=== PATIENT | female | born 1985 | race Caucasian/White ===

== ENCOUNTER → 2017-02-25 | Outpatient (REF) | payer BC, OTHER ==
[~2017-02-25] MED LIST: ACET50TA PO; IBUP-1114 PO; VITAPRTA PO
== END ==
LOC: M LAB REF 20:22
PROVIDERS: ATTEND Physician Assistant Medical
DX: J02.9 Acute pharyngitis, unspecified (principal)

== ENCOUNTER → 2017-05-16 | Outpatient (REF) | payer OTHER ==
[2017-05-16 13:23] LABS: FREE T4 1.03 NG/DL (0.76-1.46)
== END ==
LOC: M SFHCADAM 11:27
PROVIDERS: ATTEND Family Medicine
DX: E66.3 Overweight (principal)

== ENCOUNTER → 2017-12-31 | Outpatient (REF) | payer OTHER ==
[2018-01-03 14:09] LABS: HPV HYBRID CAPTURE II Negative (Negative)
== END ==
LOC: M LAB REF 13:44
DX: Z12.4 Encounter for screening for malignant neoplasm of cervix (principal); R87.610 Atypical squamous cells of undetermined significance on cytologic smear of cervix (ASC-US)
CPT/HCPCS: G0123

== ENCOUNTER → 2018-01-16 | Outpatient (CLI) | payer BC, OTHER | LOC: M RAD 14:02 | DX: N94.5 Secondary dysmenorrhea (principal) | CPT/HCPCS: 76856 ==

== ENCOUNTER → 2018-01-16 | Outpatient (CLI) | payer BC, OTHER ==
[2018-01-16 19:19] LABS: HEMATOCRIT 40.4 % (36.0-47.0); HEMOGLOBIN 13.7 g/dl (12.0-15.5); MEAN CORPUSCULAR HEMOGLOBIN 31.1 pg (27.0-33.0); MEAN CORPUSCULAR HGB CONC 33.9 g/dl (32.0-36.5); MEAN CORPUSCULAR VOLUME 91.6 fl (80.0-96.0); PLATELET COUNT, AUTOMATED 372 10^3/uL (150-450); RED BLOOD COUNT 4.41 10^6/uL (4.00-5.40); RED CELL DISTRIBUTION WIDTH 12.7 % (11.5-14.5); WHITE BLOOD COUNT 12.9 10^3/uL (4.0-10.0)
[2018-01-16 19:45] LABS: FREE THYROXINE INDEX 4.3 % (1.3-4.8); T UPTAKE 29 % (30-39); THYROXINE (T4) 14.8 UG/DL (4.5-12.0)
== END ==
LOC: M SMT 14:48
DX: N92.4 Excessive bleeding in the premenopausal period (principal)
CPT/HCPCS: 84443

== ENCOUNTER → 2018-12-24 | Outpatient (CLI) | payer BC, OTHER ==
[~2018-12-24] MED LIST changes: -ACET50TA PO; +MAPA500T2 PO
== END ==
LOC: M SMT 11:06
PROVIDERS: ATTEND Allergy & Immunology Allergy
DX: T78.1XXA Other adverse food reactions, not elsewhere classified, initial encounter (principal); L50.9 Urticaria, unspecified

== ENCOUNTER → 2019-01-06 | Outpatient (REF) | payer OTHER ==
[2019-01-08 14:26] LABS: HPV HYBRID CAPTURE II Negative (Negative)
== END ==
LOC: M LAB REF 13:01
PROVIDERS: ATTEND Advanced Practice Midwife
DX: Z12.4 Encounter for screening for malignant neoplasm of cervix (principal)
CPT/HCPCS: 87624; G0123

== ENCOUNTER → 2019-04-13 | Outpatient (CLI) | payer OTHER | LOC: M SMT 09:10 | PROVIDERS: ATTEND Advanced Practice Midwife | DX: Z13.79 Encounter for other screening for genetic and chromosomal anomalies (principal) ==

== ENCOUNTER 2019-08-05 07:22 | Day surgery (SDC) | payer BC, OTHER ==
[~2019-08-05] VITALS: Ht 157.5 cm; Wt 77.1 kg
[~2019-08-05 07:22] MED LIST changes: +ACYC1CAP20 PO; +CVS1CAP2 PO; +LIDOCAINE 1% MDV 20ML VIAL SQ PRN; +LR 1,000 ML IV ONE
[2019-08-05 07:50] LABS: HEMATOCRIT 43.4 % (36.0-47.0); HEMOGLOBIN 14.2 g/dl (12.0-15.5); MEAN CORPUSCULAR HEMOGLOBIN 30.3 pg (27.0-33.0); MEAN CORPUSCULAR HGB CONC 32.7 g/dl (32.0-36.5); MEAN CORPUSCULAR VOLUME 92.5 fl (80.0-96.0); PLATELET COUNT, AUTOMATED 323 10^3/uL (150-450); RED BLOOD COUNT 4.69 10^6/uL (4.00-5.40); WHITE BLOOD COUNT 8.2 10^3/uL (4.0-10.0)
[2019-08-05] MEDS ORDERED: ONDANSETRON 4MG/2ML VIAL (J2405) As Ordered ONE (09:11)
[2019-08-05] MEDS ORDERED: KETOROLAC 60 MG/2 ML VIAL (J1885) As Ordered ONE (09:11)
[2019-08-05] MEDS ORDERED: ACETAMINOPHEN 1000MG 100ML IV BTL (OFIRMEV) (J0131 PER 10MG) As Ordered ONE (09:11)
[2019-08-05] MEDS ORDERED: fentaNYL 250 MCG/5 ML INJECTION (J3010) As Ordered ONE (09:11)
[2019-08-05] MEDS ORDERED: PROPOFOL 200 MG/20 ML VIAL As Ordered ONE ×2 (09:11→09:16)
[2019-08-05] MEDS ORDERED: LIDOCAINE 2% INJ 100 MG/5 ML SDV (FOR ANES.) As Ordered ONE ×2 (09:11→09:16)
[2019-08-05] MEDS ORDERED: MIDAZOLAM INJ 2 MG/2 ML VIAL (J2250) As Ordered ONE (09:11)
[2019-08-05] MEDS ORDERED: dexameTHASONE 4 MG/ML 1ML VIAL (J1100) As Ordered ONE (09:12)
[2019-08-05] MEDS ORDERED: ePHEDrine SULFATE 25 MG/5 ML(5MG/ML) SYRINGE As Ordered ONE (09:14)
[2019-08-05] MEDS: SILVER NITRATE APPLICATOR As Ordered ONE (09:18)
[2019-08-05] MEDS ORDERED: fentaNYL 100 MCG/2 ML INJECTION (J3010) IV PRN (10:00)
[2019-08-05] MEDS ORDERED: oxyCODONE 5MG TAB PO PRN (10:00)
[2019-08-05] MEDS ORDERED: PERCOCET 5MG/325MG TAB PO PRN (10:00)
[2019-08-05] MEDS ORDERED: LR 1,000 ML IV SCH (10:00)
[2019-08-05 10:40] VITALS: BP 133/79
[2019-08-05] MEDS ORDERED: KETOROLAC 30 MG/ML VIAL (J1885) IV SCH (15:00)
--- NOTE | 2019-08-06 06:24 | RO ---
DATE OF PROCEDURE: 08/05/2019 PREOPERATIVE DIAGNOSIS: Abnormal uterine bleeding. POSTOPERATIVE DIAGNOSIS: Abnormal uterine bleeding. PROCEDURE PERFORMED: Hysteroscopy, dilation and curettage with endometrial ablation using NovaSure. SURGEON: Dr. Bhavana Giang CONFIGURATION ENGINEER: None. ANESTHESIA: General. ESTIMATED BLOOD LOSS: 5 mL. INTRAVENOUS FLUIDS: 400 mL lactated ringers Ringer's solution. URINE OUTPUT: Not obtained. SPECIMENS: Endometrial curetting. OPERATIVE FINDINGS: Patient with a cavity length of 5x4, endometrial ablation lasted 62 seconds. Cystoscopic findings revealed initially normal appearing endometrial cavity. Bilateral ostia visualized. Post ablation cystoscopic findings showed desiccation of the endometrium. DESCRIPTION OF OPERATION: After informed consent was obtained and written consent was reviewed, the patient was brought to the operating room where she was placed under general anesthesia. She was then placed in lithotomy position and was prepped and draped in a normal sterile fashion. A time out in the operating room was then performed identifying the patient, procedure be performed, as well as, drug allergies. A bivalved speculum was then placed revealing the cervix. The anterior lip of the cervix was grasped with a single tooth tenaculum. The uterine length was then obtained using uterine sound. The uterus was then sequentially dilated using Hanks dilators. Hysteroscope was then advanced through the cervical os and the endometrial cavity was inspected showing the above-noted findings. Hysteroscope was then removed. Sharp curette was then advanced through cervical os and uterus was curetted in a 360 fashion with tissue obtained. The tissue was collected and sent to pathology. The NovaSure device was then advanced. The uterine width was then obtained. Both the length and width was then entered into the device. Cavity assessment was performed and endometrial ablation was then performed for approximately 62 seconds. The NovaSure device was then removed. The mesh was inspected and noted to be intact. The hysteroscope was then advanced through the cervical os and the endometrial cavity was then inspected, this time showing desiccation of the endometrium. The NovaSure device was then removed. The single tooth tenaculum was removed. Silver nitrate was used on tenaculum sites for hemostasis. The patient was then taken out of lithotomy position, was awakened from anesthesia and taken recovery in stable condition. All counts were correct.
== END 2019-08-05 11:01 | disposition home or self-care (01) ==
LOC: M SDC 07:22
PROVIDERS: ATTEND Obstetrics & Gynecology
DX: N93.9 Abnormal uterine and vaginal bleeding, unspecified (principal); Z91.013 Allergy to seafood; Z79.899 Other long term (current) drug therapy
CPT/HCPCS: 36415; 58563; 81025; 85027; 86850; 86900; 86901; 88305; J0131; J1100; J1885; J2250; J2405; J3010

== ENCOUNTER 2020-01-30 11:45 | Day surgery (SDC) | payer BC, OTHER ==
[~2020-01-30] VITALS: Ht 157.5 cm; Wt 75.6 kg
[~2020-01-30 11:45] MED LIST changes: -LIDOCAINE 1% MDV 20ML VIAL SQ PRN; -LR 1,000 ML IV ONE
[2020-01-30] MEDS ORDERED: LEVOTAB10 (11:53)
[2020-01-30] MEDS ORDERED: NS 1,000 ML IV ONE (12:15)
[2020-01-30 12:34] LABS: BASO # 0.1 10^3/uL (0.0-0.2); BASO % 0.4 % (0.0-1.0); EOS # 0.1 10^3/uL (0.0-0.5); EOS % 0.8 % (0.0-3.0); HEMOGLOBIN 15.2 g/dl (12.0-15.5); LYMPH # 2.8 10^3/uL (1.5-5.0); LYMPH % 20.5 % (24.0-44.0); MEAN CORPUSCULAR HEMOGLOBIN 30.6 pg (27.0-33.0); MEAN CORPUSCULAR HGB CONC 34.5 g/dl (32.0-36.5); MEAN CORPUSCULAR VOLUME 88.5 fl (80.0-96.0); MONO # 1.2 10^3/uL (0.0-0.8); MONO % 8.4 % (0.0-5.0); NEUTROPHILS # 9.6 10^3/uL (1.5-8.5); NEUTROPHILS % 69.5 % (36.0-66.0); PLATELET COUNT, AUTOMATED 351 10^3/uL (150-450); RED BLOOD COUNT 4.97 10^6/uL (4.00-5.40); WHITE BLOOD COUNT 13.8 10^3/uL (4.0-10.0)
[2020-01-30 13:02] LABS: ALBUMIN 4.1 GM/DL (3.2-5.2); ALT/SGPT 23 U/L (12-78); BILIRUBIN,DIRECT 0.2 MG/DL (0.0-0.2); BILIRUBIN,TOTAL 0.7 MG/DL (0.2-1.0); BLOOD UREA NITROGEN 8 MG/DL (7-18); CALCIUM LEVEL 8.7 MG/DL (8.5-10.1); CARBON DIOXIDE LEVEL 27 MEQ/L (21-32); CHLORIDE LEVEL 105 MEQ/L (98-107); CREATININE FOR GFR 0.76 MG/DL (0.55-1.30); GLOMERULAR FILTRATION RATE > 60.0 (>60); GLUCOSE, FASTING 88 MG/DL (70-100); LIPASE 43 U/L (73-393); POTASSIUM SERUM 3.7 MEQ/L (3.5-5.1); SODIUM LEVEL 138 MEQ/L (136-145)
[2020-01-30] MEDS ORDERED: ISOVUE-370 76% 100ML VIAL As Ordered ONE (13:07)
--- NOTE | 2020-01-30 13:35 | REP ---
Clinical: Acute right lower quadrant pain. Technique: Axial contrast enhanced images from the lung bases to the pubic symphysis using 100 ml Isovue 370 intravenous contrast material with coronal and sagittal re-formations. Findings: The appendix is hyperemic and measures up to approximately 10 mm diameter with periappendiceal stranding and small reactive lymph nodes. Findings are consistent with acute appendicitis. No evidence for bowel obstruction or perforation. No drainable collection or abscess. Liver, spleen, pancreas, gallbladder, bilateral adrenal glands and kidneys are normal. No evidence for bowel obstruction. Scattered sigmoid diverticula noted without acute diverticulitis. Pelvis demonstrates normal bladder and age-appropriate uterus/adnexa. No pelvic fluid or ascites. No retroperitoneal adenopathy. Abdominal aorta and vasculature without aneurysm or dissection. Musculoskeletal structures are intact. Lung bases are clear. Impression: Findings consistent with acute appendicitis. No obstruction, perforation, ascites, or drainable collection/abscess. Electronically Signed by Nixon Hernandez MD 01/30/2020 01:27 P
[2020-01-30] MEDS ORDERED: LEVOTAB10 PO (13:49)
--- NOTE | 2020-01-30 14:00 | REP ---
Clinical: Pelvic pain. Technique: Transabdominal pelvic ultrasound with color Doppler evaluation of the bilateral ovaries. Findings: Bladder is normal and measures approximately 9.7 x 8.7 x 5.9 cm. Normal anteverted uterus measures 7.0 x 3.4 x 5.1 cm. Endometrial complex measures 4.9 mm thickness. The bilateral ovaries are normal in appearance and vascularity without torsion. Right ovary measures 3.9 x 2.4 x 3.2 cm (RI 0.58). Left ovary measures 3.0 x 1.9 x 1.8 cm (RI 0.56). No pelvic fluid or adnexal mass lesion. Impression: Normal pelvic ultrasound. Electronically Signed by Nixon Hernandez MD 01/30/2020 01:52 P
[2020-01-30] MEDS ORDERED: BUPIVACAINE HCL 0.25% 30ML VIAL As Ordered ONE (15:02)
[2020-01-30] MEDS ORDERED: propofoL 200 MG/20 ML VIAL As Ordered ONE (15:08)
[2020-01-30] MEDS ORDERED: LIDOCAINE 2% 100MG/5ML SDV (FOR ANES.) As Ordered ONE (15:08)
[2020-01-30] MEDS ORDERED: ROCURONIUM BROMIDE 50 MG/5 ML VIAL As Ordered ONE (15:08)
[2020-01-30] MEDS ORDERED: SUCCINYLCHOLINE 100 MG/5 ML SYRINGE (J0330) As Ordered ONE (15:08)
[2020-01-30] MEDS ORDERED: fentaNYL 250 MCG/5 ML INJECTION (J3010) As Ordered ONE (15:09)
[2020-01-30] MEDS ORDERED: MIDAZOLAM INJ 2MG/2ML VIAL (J2250 PER 1MG) As Ordered ONE (15:09)
[2020-01-30] MEDS ORDERED: LR 1,000 ML IV SCH ×2 (15:30→17:30)
[2020-01-30] MEDS ORDERED: PIPERACILLIN/TAZOBACTAM SOD 3.375 GM in D5W MINI-BAG PLUS 50 ML IV SCH (16:00)
[2020-01-30] MEDS ORDERED: dexameTHASONE 4 MG/ML 1ML VIAL (J1100 PER 1MG) As Ordered ONE (16:31)
[2020-01-30] MEDS ORDERED: ACETAMINOPHEN 1000MG 100ML IV BTL (OFIRMEV) (J0131 PER 10MG) As Ordered ONE (16:31)
[2020-01-30] MEDS ORDERED: METOCLOPRAMIDE INJ 10MG/2ML VIAL (J2765 PER 1) As Ordered ONE (16:31)
[2020-01-30] MEDS ORDERED: ONDANSETRON 4MG/2ML VIAL As Ordered ONE (16:32)
[2020-01-30] MEDS ORDERED: KETOROLAC 60MG 2ML VIAL As Ordered ONE (16:32)
[2020-01-30] MEDS ORDERED: SUGAMMADEX SODIUM 500 MG/5 ML VIAL (BRIDION) As Ordered ONE (16:37)
[2020-01-30] MEDS ORDERED: ACETAMINOPHEN TAB 650MG DOSE (2X325MG) PO PRN (17:30)
[2020-01-30] MEDS ORDERED: PERCOCET 5MG/325MG TAB PO PRN (17:30)
[2020-01-30] MEDS ORDERED: fentaNYL 100 MCG/2 ML INJECTION (J3010) IV PRN (17:30)
[2020-01-30] MEDS ORDERED: MORPHINE 2 MG/ML 1ML VIAL (J2270) IV PRN (17:30)
[2020-01-30] MEDS ORDERED: NORCO, ANEXSIA 5/325MG TABLET (HYDROcodone/ACETAMINOPHEN) PO PRN (17:30)
[2020-01-30] MEDS ORDERED: KETOROLAC 30 MG/ML 1ML VIAL IV PRN (17:30)
[2020-01-30] MEDS ORDERED: ONDANSETRON 4MG/2ML VIAL IV PRN (17:30)
[2020-01-30] MEDS ORDERED: IBUPROFEN 600MG TAB PO PRN (17:30)
[2020-01-30] MEDS ORDERED: MEPERIDINE INJ 25 MG/ML VIAL (J2175) IV PRN (17:30)
[2020-01-30 18:30] VITALS: BP 110/60
[2020-01-30 20:00] VITALS: BP 123/83
--- NOTE | 2020-02-03 08:52 | RO ---
DATE OF PROCEDURE: 01/30/2020 PREOPERATIVE DIAGNOSIS: Acute appendicitis. POSTOPERATIVE DIAGNOSIS: Acute appendicitis. PROCEDURE PERFORMED: Laparoscopic appendectomy. SURGEON: Dr. Andres Puentes ANESTHESIA: General. INDICATIONS FOR PROCEDURE: The patient is a 35-year-old woman who presented to the emergency department with a history of significant abdominal pain becoming localized to the right lower quadrant. She was found to have tenderness in the right lower quadrant with a mildly elevated white blood cell count. A CT scan was obtained which revealed some thickening of the appendix with some inflammatory changes. She is now for laparoscopic appendectomy. OPERATIVE PROCEDURE: The patient was brought to the operating room and placed on the table in a supine position. She was placed under general endotracheal anesthesia. The patient's abdomen was prepped and draped in a sterile fashion. 0.25% Marcaine was infiltrated at the trocar sites as needed. The patient had a scar from a closed skin piercing just above the umbilicus. I elected to place the initial trocar through this area and excise the scar on closure. The incision was deepened to the fascia. A Veress needle was inserted and after a positive hanging drop test the abdomen was inflated with carbon dioxide gas. The fascia was then incised in the midline and an 11 mm port was placed without difficulty. The laparoscope was placed. Initial examination showed no free fluid. There were no acute inflammatory changes identified initially. The patient's liver and gallbladder appeared normal. Visualized portions of the small and large bowel appeared normal. The patient was tilted to a Trendelenburg position and rolled slightly to the left. Two 5 mm ports were placed in the left lower quadrant. Graspers were inserted. The cecum was readily identified. The base of the appendix was identified and the appendix was identified extending superiorly and laterally towards the paracolic gutter. The appendix was clearly erythematous and inflamed. I elected to take the appendix down in a retrograde fashion. An opening was created through the mesoappendix using the hook cautery. The base of the appendix was stapled with a 45 mm endoscopic linear cutter with a blue load. The appendix was then dissected free using primarily the hook cautery working from the base towards the tip. The artery was transected near the tip of the appendix and this was controlled with the cautery. The appendix was placed in an Endopouch. The right paracolic gutter was irrigated and final inspection showed no evidence of bleeding. The closure of the appendiceal stump was sound. The patient was returned to a flat position. The abdomen was deflated and the trocars were removed. The appendix was recovered through the supraumbilical site. This was sent for permanent pathology. The fascia was closed with interrupted simple sutures of #2-0 Vicryl. The scar at the supraumbilical site was excised and the skin incisions were all closed with buried sutures of #4-0 Vicryl. Dermabond was applied to all incisions. She tolerated the procedure well without apparent complication. She was awakened in the operating room, extubated and moved to the recovery room in stable condition. ABBEY
== END 2020-01-30 21:30 | disposition home or self-care (01) ==
LOC: M ED 11:45 → M SDC 15:08 → M MS5PR 18:25 → M SDC 21:30 → ENRESERV 22:16
PROVIDERS: ATTEND Surgery
DX: K35.30 Acute appendicitis with localized peritonitis, without perforation or gangrene (principal); G43.909 Migraine, unspecified, not intractable, without status migrainosus; Z11.59 Encounter for screening for other viral diseases; J30.1 Allergic rhinitis due to pollen; Z79.899 Other long term (current) drug therapy; Z91.048 Other nonmedicinal substance allergy status; Z91.013 Allergy to seafood
CPT/HCPCS: 36415; 44970; 74177; 76856; 80048; 80076; 81001; 83690; 84702; 85025; 87086; 88304; 93976; 96360; 96361; 99284; J0131; J0330; J1100; J1885; J2250; J2405; J2543; J2765; J3010; Q9967; U0002

== ENCOUNTER → 2020-02-09 | Outpatient (CLI) | payer BC, OTHER ==
[~2020-02-09] MED LIST changes: +LEVOTAB10; +LEVOTAB10 PO
[2020-02-09 11:12] LABS: HEMATOCRIT 41.6 % (36.0-47.0); HEMOGLOBIN 13.8 g/dl (12.0-15.5); MEAN CORPUSCULAR HEMOGLOBIN 29.9 pg (27.0-33.0); MEAN CORPUSCULAR HGB CONC 33.2 g/dl (32.0-36.5); PLATELET COUNT, AUTOMATED 330 10^3/uL (150-450); RED BLOOD COUNT 4.62 10^6/uL (4.00-5.40)
[2020-02-09 14:18] LABS: APPEARANCE, URINE HAZY (CLEAR); BACTERIA, URINE AUTO 1+ (NEGATIVE); BILIRUBIN, URINE AUTO NEGATIVE (NEGATIVE); BLOOD, URINE BLOOD 2+ (NEGATIVE); COLOR, URINE YELLOW (YELLOW); GLUCOSE, URINE (UA) AUTO NEGATIVE (NEGATIVE); KETONE, URINE AUTO NEGATIVE (NEGATIVE); LEUKOCYTE ESTERASE, URINE AUTO 3+ (NEGATIVE); NITRITE, URINE AUTO NEGATIVE (NEGATIVE); PROTEIN, URINE AUTO NEGATIVE (NEGATIVE); RBC, URINE AUTO 11 /HPF (0-3); SPECIFIC GRAVITY URINE AUTO 1.015 (1.002-1.035); SQUAMOUS EPITHELIAL CELL UR AU 2 /HPF (0-6); UROBILINOGEN, URINE AUTO 0.2 mg/dL (0.0-2.0); WBC, URINE AUTO 16 /HPF (0-3)
== END ==
LOC: M LAB 10:21
PROVIDERS: ATTEND Nurse Practitioner
DX: R10.813 Right lower quadrant abdominal tenderness (principal)

== ENCOUNTER → 2020-02-14 | Outpatient (REF) | payer OTHER ==
[2020-02-14 18:04] LABS: APPEARANCE, URINE HAZY (CLEAR); BACTERIA, URINE AUTO NEGATIVE (NEGATIVE); BILIRUBIN, URINE AUTO NEGATIVE (NEGATIVE); BLOOD, URINE BLOOD 1+ (NEGATIVE); COLOR, URINE YELLOW (YELLOW); GLUCOSE, URINE (UA) AUTO NEGATIVE (NEGATIVE); KETONE, URINE AUTO NEGATIVE (NEGATIVE); LEUKOCYTE ESTERASE, URINE AUTO 2+ (NEGATIVE); NITRITE, URINE AUTO NEGATIVE (NEGATIVE); PROTEIN, URINE AUTO NEGATIVE (NEGATIVE); RBC, URINE AUTO 10 /HPF (0-3); SPECIFIC GRAVITY URINE AUTO 1.019 (1.002-1.035); SQUAMOUS EPITHELIAL CELL UR AU 1 /HPF (0-6); UROBILINOGEN, URINE AUTO 0.2 mg/dL (0.0-2.0); WBC, URINE AUTO 3 /HPF (0-3)
== END ==
LOC: M SFHCADAM 15:47
PROVIDERS: ATTEND Family Medicine
DX: R31.9 Hematuria, unspecified (principal)

== ENCOUNTER → 2020-02-16 | Outpatient (REF) | payer OTHER | LOC: M SFHCADAM 13:55 | PROVIDERS: ATTEND Family Medicine | DX: R31.9 Hematuria, unspecified (principal) ==

== ENCOUNTER → 2020-02-29 | Outpatient (REF) | payer OTHER ==
[~2020-02-29] MED LIST changes: +BACT800T5 PO
== END ==
LOC: M SMT 17:16
PROVIDERS: ATTEND Nurse Practitioner Family
DX: R31.29 Other microscopic hematuria (principal)

== ENCOUNTER 2020-03-06 20:51 | Emergency (ER) | payer BC, OTHER ==
[~2020-03-06] VITALS: Ht 157.5 cm; Wt 75.0 kg
[~2020-03-06 20:51] MED LIST changes: -BACT800T5 PO
[2020-03-06] MEDS ORDERED: KETOROLAC 30 MG/ML 1ML VIAL IV ONE (21:30)
[2020-03-06] MEDS ORDERED: ONDANSETRON 4MG/2ML VIAL IV ONE (21:30)
[2020-03-06 21:40] LABS: BASO # 0.1 10^3/uL (0.0-0.2); BASO % 0.5 % (0.0-1.0); EOS # 0.1 10^3/uL (0.0-0.5); EOS % 0.9 % (0.0-3.0); HEMATOCRIT 43.4 % (36.0-47.0); HEMOGLOBIN 14.7 g/dl (12.0-15.5); LYMPH # 3.7 10^3/uL (1.5-5.0); LYMPH % 28.3 % (24.0-44.0); MEAN CORPUSCULAR HEMOGLOBIN 30.5 pg (27.0-33.0); MEAN CORPUSCULAR HGB CONC 33.9 g/dl (32.0-36.5); MONO # 1.3 10^3/uL (0.0-0.8); MONO % 9.5 % (0.0-5.0); NEUTROPHILS # 7.9 10^3/uL (1.5-8.5); PLATELET COUNT, AUTOMATED 343 10^3/uL (150-450); RED BLOOD COUNT 4.82 10^6/uL (4.00-5.40); WHITE BLOOD COUNT 13.1 10^3/uL (4.0-10.0)
[2020-03-06] MEDS ORDERED: ISOVUE-370 76% 100ML VIAL As Ordered ONE (21:42)
[2020-03-06] MEDS ORDERED: NS 1,000 ML IV ONE (21:45)
[2020-03-06 22:07] LABS: ALBUMIN 4.1 GM/DL (3.2-5.2); BILIRUBIN,DIRECT 0.1 MG/DL (0.0-0.2); BILIRUBIN,TOTAL 0.5 MG/DL (0.2-1.0); TOTAL PROTEIN 7.9 GM/DL (6.4-8.2)
--- NOTE | 2020-03-06 22:15 | REPVR ---
PROCEDURE INFORMATION: Exam: CT Abdomen And Pelvis With Contrast Exam date and time: 03/06/2020 9:43 PM Age: 35 years old Clinical indication: Abdominal pain; Generalized; Additional info: Rlq pain since appy in January TECHNIQUE: Imaging protocol: Computed tomography of the abdomen and pelvis with intravenous contrast. Radiation optimization: All CT scans at this facility use at least one of these dose optimization techniques: automated exposure control; mA and/or kV adjustment per patient size (includes targeted exams where dose is matched to clinical indication); or iterative reconstruction. Contrast material: ISOVUE 370; Contrast volume: 100 ml; Contrast route: INTRAVENOUS (IV); COMPARISON: CT ABD/PEL W/IV CONTRAST ONLY 01/30/2020 1:06 PM FINDINGS: Mediastinal space: A small hiatal hernia is present. Liver: There is a diffuse decrease in hepatic parenchymal density, consistent with steatosis. Gallbladder and bile ducts: Normal. No calcified stones. No ductal dilation. Pancreas: Normal. No ductal dilation. Spleen: Normal. No splenomegaly. Adrenals: Normal. No mass. Kidneys and ureters: Normal. No hydronephrosis. Stomach and bowel: Unremarkable. No obstruction. No mucosal thickening. Appendix: There has been an appendectomy. Intraperitoneal space: Unremarkable. No free air. No significant fluid collection. Vasculature: Unremarkable. No abdominal aortic aneurysm. Lymph nodes: Unremarkable. No enlarged lymph nodes. Bladder: Unremarkable as visualized. Reproductive: Mild prominence of the right ovary although not significantly enlarged. Comparison with previous ultrasound of 01/30/2020 demonstrates that no right ovarian abnormalities were visualized at that time. Bones/joints: Unremarkable. No acute fracture. Soft tissues: Unremarkable. IMPRESSION: 1. There is a diffuse decrease in hepatic parenchymal density, consistent with steatosis. 2. A small hiatal hernia is present. 3. Mild prominence of the right ovary although not significantly enlarged. Comparison with previous ultrasound of 01/30/2020 demonstrates that no right ovarian abnormalities were visualized at that time. Electronically signed by: Slick Starr On 03/06/2020 22:15:02 PM
--- NOTE | 2020-03-07 | REPVR ---
PROCEDURE INFORMATION: Exam: US Pelvis Complete, Transabdominal and US Pelvis, Transvaginal and US Duplex Artery and Vein, Ovaries, Complete Exam date and time: 03/06/2020 11:31 PM Age: 35 years old Clinical indication: Pelvic pain; Prior surgery; Surgery date: 1-6 months; Surgery type: Appendectomy; Additional info: Rlq pain TECHNIQUE: Imaging protocol: Real-time transabdominal and transvaginal pelvic ultrasound (complete) with image documentation. Transvaginal imaging was used for better evaluation of the endometrium and adnexa. Real-time duplex ultrasound scan of the arterial and venous flow of the ovaries with B-mode, color Doppler flow and spectral waveform analysis. COMPARISON: US PELVIC NON-OB COMPLETE 01/30/2020 12:54 PM FINDINGS: Uterus/cervix: 7.8 x 4.7 x 4.8 cm. Normal endometrial thickness, measuring approximately 6 mm. Right ovary: 4.3 x 2.6 x 2.7 cm. 2.1 x 1.5 x 1.6 cm dominant follicle No solid mass. Normal arterial and venous ovarian blood flow. Left ovary: 2.6 x 2.2 x 2.1 cm. No mass. Normal arterial and venous ovarian blood flow. Free fluid: None. Bladder: Normal. IMPRESSION: No acute sonographic findings. Electronically signed by: Armani Brown On 03/07/2020 00:00:07 AM
[2020-03-07] MEDS ORDERED: BACT800T5 PO (00:14)
[2020-03-07] MEDS ORDERED: BACTRIM 160MG/800MG DS TAB PO ONE (00:15)
[2020-03-07 00:26] VITALS: BP 123/61
== END 2020-03-07 00:37 | disposition home or self-care (01) ==
LOC: M ED 20:51
DX: N39.0 Urinary tract infection, site not specified (principal); K76.89 Other specified diseases of liver; K44.9 Diaphragmatic hernia without obstruction or gangrene; J30.89 Other allergic rhinitis; Z79.899 Other long term (current) drug therapy; Z91.89 Other specified personal risk factors, not elsewhere classified; Z91.013 Allergy to seafood
CPT/HCPCS: 74177; 76830; 76856; 80047; 80076; 81001; 83690; 84702; 85025; 87086; 93976; 96361; 96374; 96375; 99284; J1885; J2405; Q9967

== ENCOUNTER → 2021-04-02 | Outpatient (CLI) | payer BC, OTHER ==
[~2021-04-02] MED LIST changes: +BACT800T5 PO; +ISOVUE-370 76% 100ML VIAL As Ordered ONE
--- NOTE | 2021-04-02 12:16 | REP ---
INDICATION: MICROSCOPIC HEMATURIA. COMPARISON: CT 03/06/2020 TECHNIQUE: CT abdomen and pelvis performed without IV contrast. CT abdomen pelvis performed with IV contrast as well, following intravenous administration of 100 cc of Isovue 370. Sagittal, coronal and 3D MIP reconstruction images are performed. FINDINGS: Lung bases: Show small calcified granuloma abutting the posterior margin of the left diaphragm in the lateral basal segment. Otherwise unremarkable.. Liver: Prominent left hepatic lobe but no gross hepatomegaly. No hepatic mass or biliary dilatation. No adjacent ascites. Gallbladder: Unremarkable. Spleen: Normal. Adrenals: Normal. Pancreas: Normal. Kidneys: Pre contrast shows no stone. There is no mass or cyst on either side. See no atrophy, hydronephrosis or hydroureter. CT urogram images and reconstruction show collecting systems and ureters normal to the bladder without filling defects. No stones in the pre contrast ureters. The aorta no retroperitoneal regions without the aneurysm or adenopathy. Small and large bowel: Transverse colon collapsed but without inflammatory change to suggest colitis. Remainder of the colon and small bowel loops without acute finding. Clips from prior appendectomy at the cecum. No free air Free fluid: None. Adenopathy: No retroperitoneal, other intra-abdominal or pelvic lymphadenopathy Appendix: Absent Osseous structures: Unremarkable. Pelvis: Uterus anteverted, not enlarged. No pelvic mass or adenopathy. No pelvic free fluid or adnexal mass. Dominant follicle 17 mm in the left ovary, normal. Bladder nearly empty but without mass, stone or wall thickening. Distal ureters without dilatation or stone. No ventral or inguinal hernia. No inguinal adenopathy. IMPRESSION: 1. Negative CT urogram. Kidneys, collecting systems, ureters and bladder without any acute finding. No stone, hydronephrosis, solid mass, cyst or other abnormality. 2. Prior appendectomy. Upper abdominal solid organs, gallbladder, bowel loops all unremarkable. <Electronically signed by Bobby Lanza > 04/02/21 [id number]
== END ==
LOC: M RAD 09:39
PROVIDERS: ATTEND Urology
DX: R31.29 Other microscopic hematuria (principal); J84.10 Pulmonary fibrosis, unspecified; Z90.49 Acquired absence of other specified parts of digestive tract
CPT/HCPCS: 74178; Q9967

== ENCOUNTER → 2021-06-22 | Outpatient (REF) | payer OTHER, BC ==
[~2021-06-22] MED LIST changes: -ISOVUE-370 76% 100ML VIAL As Ordered ONE
== END ==
LOC: M SFHCADAM 15:27
PROVIDERS: ATTEND Family Medicine
DX: R30.0 Dysuria (principal)

== ENCOUNTER 2021-08-31 11:05 | Emergency (ER) | payer BC, OTHER ==
[~2021-08-31] VITALS: Ht 157.5 cm; Wt 78.3 kg
[2021-08-31] MEDS ORDERED: CEPH500C (11:14)
[2021-08-31] MEDS ORDERED: AMOX875T2 (11:14)
[2021-08-31] MEDS ORDERED: LIDOCAINE 2% W/EPINEPHRINE 20ML VIAL **PRES FREE INJ ONE (12:50)
[2021-08-31] MEDS ORDERED: CLIN-250 PO (13:07)
[2021-08-31 13:40] VITALS: BP 132/82
== END 2021-08-31 13:43 | disposition home or self-care (01) ==
LOC: M ED 11:05
DX: L02.211 Cutaneous abscess of abdominal wall (principal); Z79.899 Other long term (current) drug therapy

== ENCOUNTER → 2021-10-02 | Outpatient (REF) | payer BC, OTHER ==
[~2021-10-02] MED LIST changes: +AMOX875T2; +CEPH500C; +CLIN-250 PO
[2021-10-02 13:00] LABS: C REACTIVE PROTEIN QUANTITATIV 0.65 MG/DL (0.00-0.30); RHEUMATOID FACTOR QUANT < 10.0 IU/ML (<15.0)
[2021-10-03 23:07] LABS: ANTINUCLEAR ANTIBODIES DIRECT Negative (Negative); CYCLIC CITRULLINATED PEPTIDE 5 units (0-19)
== END ==
LOC: M LAB REF 12:06
PROVIDERS: ATTEND Internal Medicine
DX: M13.80 Other specified arthritis, unspecified site (principal)

== ENCOUNTER → 2022-04-22 | Outpatient (REF) | payer OTHER | LOC: M PLALAB 08:41 | PROVIDERS: ATTEND Nurse Practitioner Family | DX: Z12.4 Encounter for screening for malignant neoplasm of cervix (principal) | CPT/HCPCS: 87624; G0123 ==

== ENCOUNTER → 2022-05-01 | Outpatient (CLI) | payer BC, OTHER | LOC: M WHC 06:39 | PROVIDERS: ATTEND Nurse Practitioner Family | DX: R10.2 Pelvic and perineal pain (principal) ==

== ENCOUNTER → 2022-07-29 | Outpatient (CLI) | payer BC, OTHER ==
[~2022-07-29] MED LIST changes: +ACYC1TAB PO; +VITMTA PO
== END ==
LOC: M LABSMTC 11:05
PROVIDERS: ATTEND Anesthesiology
DX: Z01.812 Encounter for preprocedural laboratory examination (principal); Z11.52 Encounter for screening for COVID-19

== ENCOUNTER 2022-07-31 06:19 | Day surgery (SDC) | payer BC, OTHER ==
[~2022-07-31] VITALS: Ht 157.5 cm; Wt 72.9 kg
[~2022-07-31 06:19] MED LIST changes: +ceFAZolin SOD 2 GM in IV 1 EA IV ONE
[2022-07-31] MEDS ORDERED: LR 1,000 ML IV SCH ×2 (06:40→09:30)
[2022-07-31 06:56] LABS: HEMATOCRIT 43.1 % (36.0-47.0); MEAN CORPUSCULAR HEMOGLOBIN 30.4 pg (27.0-33.0); MEAN CORPUSCULAR HGB CONC 32.5 g/dl (32.0-36.5); MEAN CORPUSCULAR VOLUME 93.7 fl (80.0-96.0); PLATELET COUNT, AUTOMATED 297 10^3/uL (150-450); WHITE BLOOD COUNT 10.4 10^3/uL (4.0-10.0)
[2022-07-31] MEDS ORDERED: BUPIVACAINE HCL 0.25% 30ML VIAL As Ordered ONE (07:20)
[2022-07-31] MEDS ORDERED: METHYLENE BLUE 0.5% (5MG/ML) 10 ML AMP (PROVAYBLUE) As Ordered ONE (07:20)
[2022-07-31] MEDS ORDERED: ROCURONIUM BROMIDE 50 MG/5 ML VIAL As Ordered ONE ×2 (08:00→08:45)
[2022-07-31] MEDS ORDERED: SUGAMMADEX SODIUM 500 MG/5 ML VIAL (BRIDION) As Ordered ONE (08:00)
[2022-07-31] MEDS ORDERED: fentaNYL 100 MCG/2 ML INJECTION As Ordered ONE (08:00)
[2022-07-31] MEDS ORDERED: LIDOCAINE 2% 100MG/5ML SDV (FOR ANES.) As Ordered ONE (08:00)
[2022-07-31] MEDS ORDERED: MIDAZOLAM INJ 2MG/2ML VIAL (J2250 PER 1MG) As Ordered ONE (08:00)
[2022-07-31] MEDS ORDERED: ONDANSETRON 4MG 2ML VIAL As Ordered ONE (08:00)
[2022-07-31] MEDS ORDERED: KETOROLAC 60MG 2ML VIAL As Ordered ONE (08:00)
[2022-07-31] MEDS ORDERED: propofoL 200 MG/20 ML VIAL As Ordered ONE (08:00)
[2022-07-31] MEDS ORDERED: dexameTHASONE 4 MG/ML 1ML VIAL (J1100 PER 1MG) As Ordered ONE (08:00)
[2022-07-31] MEDS ORDERED: ACETAMINOPHEN 1000MG 100ML IV BAG As Ordered ONE (08:01)
[2022-07-31] MEDS ORDERED: HYDROmorphone HCL 2MG/ML 1ML VIAL As Ordered ONE (08:04)
[2022-07-31] MEDS ORDERED: oxyCODONE 5MG TAB PO PRN (09:30)
[2022-07-31] MEDS ORDERED: METOCLOPRAMIDE INJ 10MG/2ML VIAL (J2765 PER 1) IV PRN (09:30)
[2022-07-31] MEDS ORDERED: fentaNYL 100 MCG/2 ML INJECTION IV PRN (09:30)
[2022-07-31] MEDS ORDERED: ONDANSETRON 4MG 2ML VIAL IV PRN (09:30)
[2022-07-31] MEDS ORDERED: HYDROMORPHONE HCL 0.5 MG/ 0.5 ML SYRINGE (J1170 PER 1) IV PRN (09:30)
[2022-07-31] MEDS ORDERED: PERCOCET 5MG/325MG TAB PO PRN (10:05)
[2022-07-31 13:14] VITALS: BP 110/55
[2022-07-31] MEDS ORDERED: KETOROLAC 30 MG/ML 1ML VIAL IV SCH (15:00)
== END 2022-07-31 13:18 | disposition home or self-care (01) ==
LOC: M SDC 06:19
PROVIDERS: ATTEND Obstetrics & Gynecology
DX: N80.00 Endometriosis of the uterus, unspecified (principal); N88.8 Other specified noninflammatory disorders of cervix uteri; N94.6 Dysmenorrhea, unspecified; N93.8 Other specified abnormal uterine and vaginal bleeding; J30.1 Allergic rhinitis due to pollen; Z79.899 Other long term (current) drug therapy; Z88.2 Allergy status to sulfonamides; Z91.013 Allergy to seafood; Z91.048 Other nonmedicinal substance allergy status
CPT/HCPCS: 36415; 58552; 81025; 85027; 86850; 86900; 86901; 88307; J0131; J0690; J1100; J1170; J1885; J2250; J2405; J3010; S2900

== ENCOUNTER → 2023-04-02 | Outpatient (REF) | payer BC, OTHER ==
[~2023-04-02] MED LIST changes: -ceFAZolin SOD 2 GM in IV 1 EA IV ONE
[2023-04-02 14:30] LABS: C REACTIVE PROTEIN QUANTITATIV 0.5 MG/DL (<1.0)
[2023-04-02 14:32] LABS: IMMUNOGLOBULIN A 158.4 MG/DL (40-350)
[2023-04-03 23:07] LABS: ENDOMYSIAL ABY IgA Negative (Negative); TISSUE TRANSGLUTAMINASE IgA <2 U/mL (0-3)
== END ==
LOC: M LAB REF 11:43
PROVIDERS: ATTEND Internal Medicine
DX: M06.4 Inflammatory polyarthropathy (principal); R10.13 Epigastric pain

== ENCOUNTER → 2023-05-01 | Outpatient (REF) | payer OTHER | LOC: M SFHCWAGY 17:16 | PROVIDERS: ATTEND Nurse Practitioner Family | DX: Z12.4 Encounter for screening for malignant neoplasm of cervix (principal) | CPT/HCPCS: 87624; G0123 ==

== ENCOUNTER 2023-07-03 09:05 | Day surgery (SDC) | payer BC, OTHER ==
[~2023-07-03] VITALS: Ht 157.5 cm; Wt 73.5 kg
[~2023-07-03 09:05] MED LIST changes: +BUPR150T12; +LIDOCAINE 2% 100MG/5ML SDV (FOR ANES.) As Ordered ONE; +MIDAZOLAM INJ 2MG/2ML VIAL As Ordered ONE; +NABU-71; +ceFAZolin SOD 2 GM in IV 1 EA IV ONE; +fentaNYL 100 MCG/2 ML INJECTION As Ordered ONE; +propofoL 200 MG/20 ML VIAL As Ordered ONE
[2023-07-03] MEDS ORDERED: LR 1,000 ML IV SCH (09:25)
[2023-07-03 10:51] VITALS: BP 129/72; TEMP 97.7; O2SAT 100
== END 2023-07-03 11:00 | disposition home or self-care (01) ==
LOC: M SDC 09:05
PROVIDERS: ATTEND Podiatrist Foot & Ankle Surgery
DX: M72.2 Plantar fascial fibromatosis (principal); M77.31 Calcaneal spur, right foot; L84 Corns and callosities; J30.2 Other seasonal allergic rhinitis; Z79.899 Other long term (current) drug therapy; Z88.2 Allergy status to sulfonamides; Z88.8 Allergy status to other drugs, medicaments and biological substances; Z91.013 Allergy to seafood

== ENCOUNTER → 2024-05-20 | Outpatient (REF) | payer OTHER ==
[~2024-05-20] MED LIST changes: -LIDOCAINE 2% 100MG/5ML SDV (FOR ANES.) As Ordered ONE; -MIDAZOLAM INJ 2MG/2ML VIAL As Ordered ONE; -ceFAZolin SOD 2 GM in IV 1 EA IV ONE; -fentaNYL 100 MCG/2 ML INJECTION As Ordered ONE; -propofoL 200 MG/20 ML VIAL As Ordered ONE
[2024-05-27 10:18] LABS: HPV VAGINAL Not Detected (NOT DETECT)
== END ==
LOC: M SFHCWAGY 14:51
PROVIDERS: ATTEND Nurse Practitioner Family
DX: Z12.72 Encounter for screening for malignant neoplasm of vagina (principal)
CPT/HCPCS: 87624; G0123

== ENCOUNTER → 2024-05-31 | Outpatient (REF) | payer OTHER | LOC: M LAB REF 11:32 | PROVIDERS: ATTEND Internal Medicine | DX: M06.4 Inflammatory polyarthropathy (principal) ==